=== PATIENT | male | born 1965 ===

== ENCOUNTER → 2021-10-12 09:29 | Outpatient (BNVA) | payer OTHER, SELFPAY | PROVIDERS: PCP Registered Nurse; Visit Provider Psychiatry & Neurology Neurology | DX: G20 Parkinson's disease (principal); S06.5X9D Traumatic subdural hemorrhage with loss of consciousness of unspecified duration, subsequent encounter; R41.3 Other amnesia; R53.1 Weakness | CPT/HCPCS: 99212 ==

== ENCOUNTER → 2021-11-11 09:21 | Outpatient (BNVA) | payer OTHER, SELFPAY | PROVIDERS: Visit Provider Psychiatry & Neurology Neurology | DX: G20 Parkinson's disease (principal); R41.3 Other amnesia; R44.3 Hallucinations, unspecified; S06.5X9A Traumatic subdural hemorrhage with loss of consciousness of unspecified duration, initial encounter | CPT/HCPCS: 99212 ==

== ENCOUNTER 2021-11-15 07:57 | Outpatient (REF) | payer OTHER, SELFPAY ==
--- NOTE | 2021-11-15 08:02 | EEG_ITS ---
This is a 16-channel EEG with an EKG lead. Patient is reported awake during the tracing. Background EEG rhythm is 16 to 20 hertz, 5 to 20 microvolt posteriorly, lower amplitude fast anteriorly. Photic stimulation does not produce any significant abnormality. Hyperventilation is not performed. Cardiac lead does not reveal any significant abnormality. No sharp wave spikes or paroxysmal tendency noted. IMPRESSION: Unremarkable electroencephalogram. MD PALLAVI Hanley/ROLLY / [id number]
== END 2021-11-15 07:58 | disposition home or self-care (01) ==
LOC: HO.NEURO 07:57
PROVIDERS: PCP Registered Nurse; Visit Provider Psychiatry & Neurology Neurology
DX: S06.5X9A Traumatic subdural hemorrhage with loss of consciousness of unspecified duration, initial encounter (principal); R41.3 Other amnesia
CPT/HCPCS: 95816

== ENCOUNTER → 2022-01-13 09:51 | Outpatient (BNVA) | payer OTHER, SELFPAY | PROVIDERS: PCP Registered Nurse; Visit Provider Psychiatry & Neurology Neurology | DX: G20 Parkinson's disease (principal); R41.3 Other amnesia; R44.3 Hallucinations, unspecified; S06.5X9D Traumatic subdural hemorrhage with loss of consciousness of unspecified duration, subsequent encounter | CPT/HCPCS: 99212 ==

== ENCOUNTER → 2022-07-05 10:30 | Outpatient (BNVA) | payer OTHER, SELFPAY | PROVIDERS: PCP Registered Nurse; Visit Provider Psychiatry & Neurology Neurology | DX: G20 Parkinson's disease (principal); R29.6 Repeated falls; S06.5X9A Traumatic subdural hemorrhage with loss of consciousness of unspecified duration, initial encounter; W18.39XA Other fall on same level, initial encounter; Y93.01 Activity, walking, marching and hiking; Y92.9 Unspecified place or not applicable; Y99.8 Other external cause status; R41.3 Other amnesia; R44.3 Hallucinations, unspecified | CPT/HCPCS: 99212 ==

== ENCOUNTER → 2022-07-19 07:54 | Outpatient (BNVA) | payer OTHER, SELFPAY | PROVIDERS: PCP Registered Nurse; Visit Provider Nurse Practitioner Family | DX: R29.6 Repeated falls (principal); G90.3 Multi-system degeneration of the autonomic nervous system; R53.1 Weakness; R41.3 Other amnesia; S06.5X9A Traumatic subdural hemorrhage with loss of consciousness of unspecified duration, initial encounter; X58.XXXA Exposure to other specified factors, initial encounter; Y93.9 Activity, unspecified; Y92.9 Unspecified place or not applicable; Y99.8 Other external cause status | CPT/HCPCS: 99212 ==

== ENCOUNTER → 2022-10-11 10:54 | Outpatient (BNVA) | payer OTHER, SELFPAY | PROVIDERS: PCP Registered Nurse; Visit Provider Psychiatry & Neurology Neurology | DX: G20 Parkinson's disease (principal); R41.3 Other amnesia; S06.5X9D Traumatic subdural hemorrhage with loss of consciousness of unspecified duration, subsequent encounter | CPT/HCPCS: 99212 ==

== ENCOUNTER → 2022-10-25 08:42 | Outpatient (BNVA) | payer OTHER, SELFPAY | PROVIDERS: PCP Registered Nurse; Visit Provider Nurse Practitioner Family | DX: G20 Parkinson's disease (principal); S06.5X9D Traumatic subdural hemorrhage with loss of consciousness of unspecified duration, subsequent encounter; R41.3 Other amnesia | CPT/HCPCS: 99212 ==

== ENCOUNTER 2023-05-10 13:58 | Outpatient (AMB) | payer OTHER, SELFPAY ==
[2023-05-10 14:00] VITALS: BP 118/82; PULSE 72; O2SAT 95; BMI 28.4
--- NOTE | 2023-05-10 14:00 | A.OFFVIS_ITS ---
Intake Vital Signs 05/10/23 14:00 Height 5 ft 3 in Weight 160 lb 2 oz BMI 28.4 BP 118/82 Blood Pressure Location Rt brachial Position Sitting Pulse 72 Pulse Source Pulse Oximeter Pulse Oximetry (%) 95 Oxygen Delivery Method Room Air Intake Visit Reasons: follow up-lvm Intake Note: Pt presents with his for a f/u. Temporary Office Assistant Required: No Allergies Seasonal Allergies Allergy (Unknown, Verified 05/10/23 14:04) Unknown Medication List - Last Reconciled 05/10/23 by Mamta Hoyt MD albuterol sulfate 90 mcg/actuation 2 puffs inhalation Q4-6H PRN amantadine HCl 100 mg PO .5x per day ammonium lactate 12% appl topical BID PRN budesonide-formoterol 160-4.5 mcg/actuation (Symbicort) 2 puffs inhalation BID cyclosporine 0.05% (Restasis) 1 drp ophthalmic (eye) Q12H docusate sodium 100 mg PO BID fluoxetine 20 mg PO DAILY ibuprofen 200 mg PO Q6H loratadine 10 mg PO DAILY ropinirole 1 mg PO TID 30 days trazodone 50 mg PO BEDTIME PRN trihexyphenidyl 1 mg PO TID HPI HPI Comments History of Present Illness Details 57-year-old male patient present with a familial Parkinson's disease and?subdural hematoma presents with his for follow up after 6 months. No major falls. H emay bump into gay. He uses the walker more consistently He is doing better with current medication regimen. gait is better. Pt reports that his dyskinesia and tremor has decreased with Trihexyphenidyl 2mg 1/2 tab tid, Requip 1mg TID, and amantadine 100mg, 5 times a day. He is doing better with requip- denies OCD , sleepiness or fatigue. He denies headaches or confusion. Pt denies dizziness or light headedness upon standing. Denies hallucination. He does PT exercises at home. Pt's reports that his insurance will approve for PT from March,. His memory is better. Pt's manages patient's medication and he compliant with his meds. Tremor is very mild. He uses shower chair, and can do ALDs independently. Denies difficulty swallowing. [facility] Medical History Asthma Constipation Hallucinations Neck pain Subdural hematoma Surgical History Hx of brain surgery Hx of craniotomy Family History Father Heart disease Mother Heart disease Hypertension Brother Parkinson disease Brother Parkinson disease Sister Parkinson disease Diabetes Social History Alcohol intake: never Patient Tobacco Use Status: Never used Tobacco Use of substances other than those prescribed or required for medical reasons: No Current occupational status: disabled Physical Exam Vital Signs: Last Vital Signs Pulse 72 05/10/23 14:00 BP 118/82 05/10/23 14:00 Pulse Ox 95 05/10/23 14:00 Oxygen Delivery Method Room Air 05/10/23 14:00 BMI result Body Mass Index 28.4 Const General: cooperative and no acute distress Nutritional Appearance: underweight Orientation/consciousness: oriented to person and oriented to place HEENT Head: Yes normal to inspection Neuro Other: Mild decreased blink and facial expression slow tongue movements. mild tonuge tremor Voice- hypophonia Cristobal leg mild dyskinesias Fine Finger movements - mild decreased cristobal l>R Alternating hand movements - decreased cristobal Hand movements - decreased cristobal Foot taps- decreased cristobal gait - mild off balance, postural instability with cane. General: oriented to person and oriented to place Coordination: [id number] test normal Psych Appearance: grossly normal Assessment & Plan Assessment & Plan (1) Parkinsons disease: Comment: familial, positive genetic testing Code(s): G20 - Parkinson's disease Plan Continue Trihexyphenidyl 2mg 1/2 tab TID, Requip 1mg TID, and amantadine 100mg, 5 times a day. Continue using heavy duty walker - to prevent falls. Continue to do home PT exercise for BLE strength. Advised patient to increase PO fluid intake. Coding Level of Care Code Est Pt Level 4 (44328) Diagnoses Parkinsons disease G20
== END 2023-05-10 14:21 | disposition home or self-care (01) ==
PROVIDERS: Visit Provider Psychiatry & Neurology Neurology
DX: G20 Parkinson's disease (principal)
CPT/HCPCS: 99214

== ENCOUNTER → 2023-05-10 13:58 | Outpatient (BNVA) | payer OTHER, SELFPAY | PROVIDERS: Visit Provider Psychiatry & Neurology Neurology | DX: G20 Parkinson's disease (principal); Z79.899 Other long term (current) drug therapy | CPT/HCPCS: 99212 ==

== ENCOUNTER 2023-11-15 13:16 | Outpatient (AMB) | payer OTHER, SELFPAY ==
--- NOTE | 2023-11-15 13:17 | A.OFFVIS_ITS ---
Intake Vital Signs 11/15/23 13:19 Height 5 ft 3 in Weight 164 lb 8 oz BMI 29.1 BP 120/68 Blood Pressure Location Lt brachial Position Sitting Respiration 17 Pulse 85 Pulse Source Pulse Oximeter Pulse Oximetry (%) 96 Oxygen Delivery Method Room Air Intake Visit Reasons: 6m follow up-CONF Intake Note: [facility] 6 [facility] follow up for Parkinson's and subdural hematoma. Pt reports he has been having more recent falls lately and feels more fatigue throughout the day. Ekg/Ecg Technician Required: No Allergies Seasonal Allergies Allergy (Unknown, Verified 11/15/23 13:18) Unknown HPI HPI Comments History of Present Illness Details 58-year-old male patient present with a familial Parkinson's disease and?subdural hematoma presents with his for follow up. he was doing well until 2 weeks ago he started having falls usually when eh stands from a sitting position . He may bump into gay. He uses the walker more consistently He is doing better with current medication regimen. gait is better. Pt reports that his dyskinesia and tremor has decreased with Trihexyphenidyl 2mg 1/2 tab tid, Requip 1mg TID, and amantadine 100mg, 5 times a day. He is doing better with requip- denies OCD , sleepiness or fatigue. He denies headaches or confusion. Pt denies dizziness or light headedness upon standing. Denies hallucination. He does PT exercises at home. Pt's reports that his insurance will approve for PT from March,. His memory is better. Pt's manages patient's medication and he compliant with his meds. Tremor is very mild. He uses shower chair, and can do ALDs independently. Denies difficulty swallowing. [facility] Medical History Hallucinations Constipation Asthma Neck pain Subdural hematoma Surgical History Hx of craniotomy Hx of brain surgery Family History Father Heart disease Mother Heart disease Hypertension Brother Parkinson disease Brother Parkinson disease Sister Parkinson disease Diabetes Social History Alcohol intake: never Patient Tobacco Use Status: Never used Tobacco Current occupational status: disabled Physical Exam Vital Signs: Last Vital Signs Pulse 85 11/15/23 13:19 Resp 17 11/15/23 13:19 BP 120/68 11/15/23 13:19 Pulse Ox 96 11/15/23 13:19 Oxygen Delivery Method Room Air 11/15/23 13:19 BMI result Body Mass Index 29.1 Const General: cooperative and no acute distress Nutritional Appearance: underweight Orientation/consciousness: oriented to person and oriented to place HEENT Head: Yes normal to inspection Neuro Other: Mild decreased blink and facial expression slow tongue movements. mild tonuge tremor Voice- hypophonia Cristobal leg mild dyskinesias Fine Finger movements - mild decreased cristobal l>R Alternating hand movements - decreased cristobal Hand movements - decreased cristobal Foot taps- decreased cristobal gait - mild off balance, postural instability with cane. General: oriented to person and oriented to place Coordination: [id number] test normal Psych Appearance: grossly normal Assessment & Plan Assessment & Plan (1) Parkinsons disease: Comment: familial, positive genetic testing Code(s): G20 - Parkinson's disease Plan Continue Trihexyphenidyl 2mg 1/2 tab TID, Requip 1mg TID, and amantadine 100mg, 5 times a day.will consider decreasing ropiniorle Continue using heavy duty walker - to prevent falls. Monitor blood pressure Continue to do home PT exercise for BLE strength. Advised patient to increase PO fluid intake. Coding Level of Care Code Est Pt Level 4 (93383) Diagnoses Parkinsons disease G20
[2023-11-15 13:19] VITALS: BP 120/68; PULSE 85; RESP 17; O2SAT 96; BMI 29.1
== END 2023-11-15 13:54 | disposition home or self-care (01) ==
PROVIDERS: PCP Registered Nurse; Visit Provider Psychiatry & Neurology Neurology
DX: G20.C Parkinsonism, unspecified (principal)
CPT/HCPCS: 99214

== ENCOUNTER → 2023-11-15 13:16 | Outpatient (BNVA) | payer OTHER, SELFPAY | PROVIDERS: PCP Registered Nurse; Visit Provider Psychiatry & Neurology Neurology | DX: G20.A1 Parkinson's disease without dyskinesia, without mention of fluctuations (principal) | CPT/HCPCS: 99212 ==

== ENCOUNTER 2024-02-14 15:10 | Outpatient (AMB) | payer OTHER, SELFPAY ==
--- NOTE | 2024-02-14 15:20 | A.OFFVIS_ITS ---
Vital Signs 02/14/24 15:21 Height 5 ft 3 in Weight 165 lb 4 oz BMI 29.3 BP 144/80 H Blood Pressure Location Rt brachial Position Sitting Respiration 16 Pulse 66 Pulse Source Pulse Oximeter Pulse Oximetry (%) 95 Oxygen Delivery Method Room Air Intake Visit Reasons: Follow up - Confirmed Intake Note: Pt presents to the office for 3 month follow up for Parkinson's. [employer] Equipment Mechanic Required: No Allergies Seasonal Allergies Allergy (Unknown, Verified 02/14/24 15:21) Unknown Medication List - Last Reconciled 02/14/24 by Mamta Hoyt MD albuterol sulfate 90 mcg/actuation 2 puffs inhalation Q4-6H PRN amantadine HCl 100 mg PO .5x per day ammonium lactate 12% appl topical BID PRN budesonide-formoterol 160-4.5 mcg/actuation (Symbicort) 2 puffs inhalation BID cyclosporine 0.05% (Restasis) 1 drp ophthalmic (eye) Q12H docusate sodium 100 mg PO BID fluoxetine 20 mg PO DAILY ibuprofen 200 mg PO Q6H loratadine 10 mg PO DAILY ropinirole 1 mg PO TID 30 days trazodone 50 mg PO BEDTIME PRN trihexyphenidyl 1 mg (1/2 x 2 mg) PO TID HPI Comments Details: 58-year-old male patient present with a familial Parkinson's disease and?subdural hematoma presents with his for follow up. He is doing better with current medication regimen. gait is better.He started going to the gym which is helping him Pt reports that his dyskinesia and tremor has decreased with Trihexyphenidyl 2mg 1/2 tab tid, Requip 1mg TID, and amantadine 100mg, 5 times a day. He is doing better with requip- denies OCD , sleepiness or fatigue. He denies headaches or confusion. Pt denies dizziness or light headedness upon standing. Denies hallucination. His memory is better. Pt's manages patient's medication and he compliant with his meds. Tremor is very mild. He uses shower chair, and can do ALDs independently. Denies difficulty swallowing. [facility] Medical History (Updated 02/14/24 @ 15:49 by Mamta Hoyt MD) Parkinson's disease with dyskinesia Hallucinations Constipation Asthma Neck pain Subdural hematoma Surgical History Hx of craniotomy Hx of brain surgery Family History Father Heart disease Mother Heart disease Hypertension Brother Parkinson disease Brother Parkinson disease Sister Parkinson disease Diabetes Social History Alcohol intake: never Patient Tobacco Use Status: Never used Tobacco Current occupational status: disabled Physical Exam Vital Signs: Last Vital Signs Pulse 66 02/14/24 15:21 Resp 16 02/14/24 15:21 BP 144/80 H 02/14/24 15:21 Pulse Ox 95 02/14/24 15:21 Oxygen Delivery Method Room Air 02/14/24 15:21 BMI result Body Mass Index 29.3 Const General: cooperative and no acute distress Nutritional Appearance: underweight Orientation/consciousness: oriented to person and oriented to place HEENT Head: Yes normal to inspection Neuro Other: Mild decreased blink and facial expression slow tongue movements. mild tonuge tremor Voice- hypophonia No dyskinesias today Fine Finger movements - mild decreased yovani l>R Alternating hand movements - decreased yovani Hand movements - decreased yovani Foot taps- decreased yovani gait - mild off balance, able to walk without cane General: oriented to person and oriented to place Coordination: [id number] test normal Psych Appearance: grossly normal Assessment & Plan Assessment & Plan (1) Parkinsons disease: Comment: familial, positive genetic testing Code(s): G20 - Parkinson's disease Category: Medical (2) Parkinson's disease with dyskinesia: Code(s): G20.B1 - Parkinson's disease with dyskinesia, without mention of fluctuations Category: Medical Plan Continue Trihexyphenidyl 2mg 1/2 tab TID, Requip 1mg TID, and amantadine 100mg, 5 times a day. Continue using heavy duty walker - to prevent falls. Monitor blood pressure Continue to do home PT exercise for BLE strength. Advised patient to increase PO fluid intake. Coding Level of Care Code Est Pt Level 4 (98254) Complex EM visit Add On G2211 Diagnoses Parkinsons disease G20 Parkinson's disease with dyskinesia G20.B1
[2024-02-14 15:21] VITALS: BP 144/80; PULSE 66; RESP 16; O2SAT 95; BMI 29.3
== END 2024-02-14 15:52 | disposition home or self-care (01) ==
PROVIDERS: PCP Registered Nurse; Visit Provider Psychiatry & Neurology Neurology
DX: G20.B1 Parkinson's disease with dyskinesia, without mention of fluctuations (principal)
CPT/HCPCS: 99214; G2211

== ENCOUNTER → 2024-02-14 15:10 | Outpatient (BNVA) | payer OTHER, SELFPAY | PROVIDERS: PCP Registered Nurse; Visit Provider Psychiatry & Neurology Neurology | DX: G20.B1 Parkinson's disease with dyskinesia, without mention of fluctuations (principal) | CPT/HCPCS: 99212 ==

== ENCOUNTER 2024-08-26 15:27 | Outpatient (AMB) | payer OTHER, SELFPAY ==
[2024-08-26 15:35] VITALS: BMI 30.3
--- NOTE | 2024-08-26 15:35 | MHC.OFFVIS ---
Vital Signs 08/26/24 15:35 Height 5 ft 3 in Weight 171 lb BMI 30.3 Intake Visit Reasons: Follow up Intake Note: Patient presents for follow up. patient falling down a lot. seen in ER 3-4 months ago after fall had a little brain bleed Allergies Seasonal Allergies Allergy (Unknown, Verified 08/26/24 15:37) Unknown Medication List - Last Reconciled 08/26/24 by Mamta Hoyt MD albuterol sulfate 90 mcg/actuation 2 puffs inhalation Q4-6H PRN amantadine HCl 100 mg PO .5x per day ammonium lactate 12% appl topical BID PRN budesonide-formoterol 160-4.5 mcg/actuation (Symbicort) 2 puffs inhalation BID cyclosporine 0.05% (Restasis) 1 drp ophthalmic (eye) Q12H docusate sodium 100 mg PO BID fluoxetine 20 mg PO DAILY ibuprofen 200 mg PO Q6H loratadine 10 mg PO DAILY ropinirole 1 mg PO TID 30 days trazodone 50 mg PO BEDTIME PRN trihexyphenidyl 1 mg (1/2 x 2 mg) PO TID HPI Comments Details: 58-year-old male patient present with a familial Parkinson's disease and?subdural hematoma presents with his for follow up.No falls since last visit but has multiple near falls. He likes his medication regimen and does not want to change it . gait is better. Pt reports that his dyskinesia and tremor has decreased with Trihexyphenidyl 2mg 1/2 tab tid, Requip 1mg TID, and amantadine 100mg, 5 times a day. He is doing better with requip- denies OCD , sleepiness or fatigue. He denies headaches or confusion. Pt denies dizziness or light headedness upon standing. Denies hallucination. His memory is better. Pt's manages patient's medication and he compliant with his meds. Tremor is very mild. He uses shower chair, and can do ALDs independently. Denies difficulty swallowing. [facility] Medical History Parkinson's disease with dyskinesia Hallucinations Constipation Asthma Neck pain Subdural hematoma Surgical History Hx of craniotomy Hx of brain surgery Family History Father Heart disease Mother Heart disease Hypertension Brother Parkinson disease Brother Parkinson disease Sister Parkinson disease Diabetes Social History Alcohol intake: never Patient Tobacco Use Status: Never used Tobacco Current occupational status: disabled Physical Exam Vital Signs: BMI result Body Mass Index 30.3 Const General: cooperative and no acute distress Nutritional Appearance: underweight Orientation/consciousness: oriented to person and oriented to place HEENT Head: Yes normal to inspection Neuro Other: Mild decreased blink and facial expression slow tongue movements. mild tonuge tremor Voice- hypophonia No dyskinesias today Fine Finger movements - mild decreased yovani l>R Alternating hand movements - decreased yovani Hand movements - decreased yovani Foot taps- decreased yovani gait - mild off balance, even with walker General: oriented to person and oriented to place Coordination: [id number] test normal Psych Appearance: grossly normal Assessment & Plan Assessment & Plan (1) Parkinsons disease: Comment: familial, positive genetic testing Code(s): G20 - Parkinson's disease Category: Medical Qualifiers: Dyskinesia presence: with dyskinesia Fluctuating manifestations: with fluctuating manifestations Qualified Code(s): G20.B2 - Parkinson's disease with dyskinesia, with fluctuations Plan Continue Trihexyphenidyl 2mg 1/2 tab TID, amantadine 100mg, 5 times a day. chnage requip 1mg to 1/2 tab 6 times a day Continue using heavy duty walker - to prevent falls. Monitor blood pressure Continue to do home PT exercise for BLE strength. Advised patient to increase PO fluid intake. Medications: Changed From ropinirole 1 mg PO TID 30 days 90 tabs 6RF To ropinirole 0.5 mg (1/2 x 1 mg) PO .6 times a day 30 days 90 tabs 6RF Coding Level of Care Code Est Pt Level 4 (07670) Complex EM visit Add On G2211 Diagnoses Parkinson's disease with dyskinesia and fluctuating manifestations G20.B2 Dyskinesia presence: with dyskinesia Fluctuating manifestations: with fluctuating manifestations
== END 2024-08-26 16:10 | disposition home or self-care (01) ==
PROVIDERS: PCP Registered Nurse; Visit Provider Psychiatry & Neurology Neurology
DX: G20.B2 Parkinson's disease with dyskinesia, with fluctuations (principal)
CPT/HCPCS: 99214; G2211

== ENCOUNTER → 2024-08-26 15:27 | Outpatient (BNVA) | payer OTHER, SELFPAY | PROVIDERS: PCP Registered Nurse; Visit Provider Psychiatry & Neurology Neurology | DX: G20.B1 Parkinson's disease with dyskinesia, without mention of fluctuations (principal) | CPT/HCPCS: 99212 ==

== ENCOUNTER 2025-03-05 15:25 | Outpatient (AMB) | payer OTHER, SELFPAY ==
--- NOTE | 2025-03-05 15:27 | A.OFFVIS_ITS ---
Vital Signs 03/05/25 15:28 Height 5 ft 3 in Weight 171 lb BMI 30.3 BP 132/74 Blood Pressure Location Rt brachial Position Sitting Pulse 77 Pulse Source Pulse Oximeter Pulse Oximetry (%) 95 Oxygen Delivery Method Room Air Intake Visit Reasons: 6mon follow up Intake Note: patient presents for med adjustment ropinirole Allergies Seasonal Allergies Allergy (Unknown, Verified 03/05/25 15:29) Unknown HPI Comments Details: 59-year-old male patient present with a familial Parkinson's disease and?subdural hematoma presents with his for follow up.since he changed ropinirole frequency ( 1mg tid was changed to 1/2 mg 6 times day ) he has been having multiple falls.Not sure if he is misisng doses Pt reports that his dyskinesia and tremor has decreased with Trihexyphenidyl 2mg 1/2 tab tid, Requip 1mg TID, and amantadine 100mg, 5 times a day. He is doing better with requip- denies OCD , sleepiness or fatigue. He denies headaches or confusion. Pt denies dizziness or light headedness upon standing. Denies hallucination. His memory is better. Pt's manages patient's medication and he compliant with his meds. Tremor is very mild. He uses shower chair, and can do ALDs independently. Denies difficulty swallowing. [facility] Medical History Parkinson's disease with dyskinesia Hallucinations Constipation Asthma Neck pain Subdural hematoma Surgical History Hx of craniotomy Hx of brain surgery Family History Father Heart disease Mother Heart disease Hypertension Brother Parkinson disease Brother Parkinson disease Sister Parkinson disease Diabetes Social History Alcohol intake: never Patient Tobacco Use Status: Never used Tobacco Current occupational status: disabled Physical Exam Vital Signs: Last Vital Signs Pulse 77 03/05/25 15:28 BP 132/74 03/05/25 15:28 Pulse Ox 95 03/05/25 15:28 Oxygen Delivery Method Room Air 03/05/25 15:28 BMI result Body Mass Index 30.3 Const General: cooperative and no acute distress Nutritional Appearance: underweight Orientation/consciousness: oriented to person and oriented to place HEENT Head: Yes normal to inspection Neuro Other: Mild decreased blink and facial expression slow tongue movements. mild tonuge tremor Voice- hypophonia dyskinesias LE- moderate Fine Finger movements - mild decreased yovani l>R Alternating hand movements - decreased yovani Hand movements - decreased yovani Foot taps- decreased yovani gait - mild off balance, even with walker General: oriented to person and oriented to place Coordination: [id number] test normal Psych Appearance: grossly normal Assessment & Plan Assessment & Plan (1) Parkinsons disease: Comment: familial, positive genetic testing Code(s): G20 - Parkinson's disease Category: Medical Qualifiers: Dyskinesia presence: with dyskinesia Fluctuating manifestations: with fluctuating manifestations Qualified Code(s): G20.B2 - Parkinson's disease with dyskinesia, with fluctuations Plan Continue Trihexyphenidyl 2mg 1/2 tab TID, amantadine 100mg, 5 times a day. chnage requip 1mg tid times a day Continue using heavy duty walker - to prevent falls. Monitor blood pressure . Advised patient to increase PO fluid intake. Home PT ordered by PCP Fall prevention discussed Coding Level of Care Code Est Pt Level 4 (42392) Complex EM visit Add On G2211 Diagnoses Parkinson's disease with dyskinesia and fluctuating manifestations G20.B2 Dyskinesia presence: with dyskinesia Fluctuating manifestations: with fluctuating manifestations
[2025-03-05 15:28] VITALS: BP 132/74; PULSE 77; O2SAT 95; BMI 30.3
--- OUTSIDE RECORDS SUMMARY | 2025-03-05 16:38 | XMS_ITS | Clinical Summary ---
Author Organization [facility] Address [address] [place] [address] Care Team Providers Care Last Sawyer Name Role Phone Unavailable Primary Care Provider Unavailabl e Social History Tobacco Use Types Packs/Day Years Used Date Smoking Tobacco: Never Assessed Sex and Gender Information Value Date Recorded Sex Assigned at Not on file Legal Sex Male 5:06 AM EST Gender Identity Not on file Sexual Orientation Not on file Plan of Treatment Health Maintenance Due Date Last Done Comments DTaP,Tdap,and Td Vaccines (1 - Tdap) 1982 Pneumococcal Vaccine: 50+ Ye ars (1 of 1 - PCV) 2013 Zoster Vaccines (1 of 2) 2013 COVID-19 Vaccine ( - 2023-2 5 season) 2024 Influenza Vaccine (Season Ended) 2025 RSV Immunization Adult Patie nts (1 - 1-dose 75+ series) 2038 HIB Vaccines Aged Out No longer eligi ble based on patient's age to complete this topic HPV Vaccines Aged Out No longer eligi ble based on patient's age to complete this topic Hepatitis A Vaccines Aged Out No long er eligible based on patient's age to complete this topic Hepatitis B Vaccines Aged Out No long er eligible based on patient's age to complete this topic IPV Vaccines Aged Out No longer eligi ble based on patient's age to complete this topic MMR Vaccines Aged Out No longer eligi ble based on patient's age to complete this topic Meningococcal ACWY Vaccine Aged Out N o longer eligible based on patient's age to complete this topic Meningococcal B Vaccine Aged Out No l onger eligible based on patient's age to complete this topic Pneumococcal Vaccine: Pediat rics (0 to 5 Years) and At-Risk Patients (6 to 64 Years) Aged Out No longer eligible b ased on patient's age to complete this topic RSV Immunization Patients Un lianne 20 months Aged Out No longer eligible b ased on patient's age to complete this topic Varicella Vaccines Aged Out No longer eligible based on patient's age to complete this topic
== END 2025-03-05 15:56 | disposition home or self-care (01) ==
LOC: HO.HSMS 15:25
PROVIDERS: PCP Registered Nurse; Visit Provider Psychiatry & Neurology Neurology
DX: G20.B2 Parkinson's disease with dyskinesia, with fluctuations (principal)
CPT/HCPCS: 99214; G2211

== ENCOUNTER → 2025-03-05 15:25 | Outpatient (BNVA) | payer OTHER, SELFPAY | PROVIDERS: PCP Registered Nurse; Visit Provider Psychiatry & Neurology Neurology | DX: G20.B2 Parkinson's disease with dyskinesia, with fluctuations (principal) | CPT/HCPCS: 99212 ==